=== PATIENT | female | born 1995 | race Caucasian/White ===

== ENCOUNTER 2017-08-04 09:35 | Outpatient (CLI) | payer BC ==
[~2017-08-04] VITALS: Ht 165.1 cm; Wt 101.4 kg
[2017-08-04 09:45] VITALS: BP 138/79; PULSE 95; RESP 16; Ht 165.1 cm; Wt 101.4 kg
--- NOTE | 2017-08-04 11:36 | CONS ---
Date/Time of Note Date/Time of Note DATE: 08/04/17 TIME: 11:35 Assessment/Plan Assessment/Plan Additional Assessment/Plan [facility] OUTPATIENT CONSULTATION NOTE DATE OF SERVICE: 08/04/2017 PLACE OF SERVICE: [facility], [facility] ASSESSMENT AND PLAN: A very-pleasant 22-year-old lady with multiple comorbid issues including BMI 37.2, presenting with a small lesion in segment 6 of the liver that seems to have been stable in size (2 cm) since at least February 2016 and has not changed in character for almost 1-1/2 years. The realistic chance that this is a malignancy is almost 0. It certainly could be an adenoma, but could also be areas of fat sparing within a steatotic appearing liver. Currently, I do not see any indication for invasive procedures and I have recommended continued follow-up with a repeat MRI with [facility] to be done now (2 compared to MRI from 06/09/2016) and to present the patient's case in our multidisciplinary tumor board presentation. After above shows stable disease, we can switch to ultrasound related surveillance with every 6 months for a year and perhaps yearly after that for another 2 years. This would be a similar protocol that we would use for following patients with asymptomatic hepatic adenomas. We can change our management if there are any changes with the images or with the patient's symptoms. Of much more importance is the patient's BMI of 37.2 and the hepatic steatosis that we see on the images. I believe that the clinical impact of her current lifestyle far outweigh the risks that are presented by the lesion in the liver. For this reason, I spent an extra 15 minutes of counseling regarding healthy living and ways to achieve those with permanent lifestyle changes. Discussed all of the above with the patient (no family present) and answered all questions. Patient appeared to understand and agreed with plans. With above assessment, I've recommended the followin. Liver MRI with [facility] 2. Multidisciplinary tumor board presentation after above 3. Likely can follow this lesion with ultrasound every 6 months for a year to start 6 months after above-mentioned MRI, and then likely yearly after that for another 2 years 3. Permanent lifestyle changes with the goal of bringing the BMI to between 18- 24 4. Quit smoking Thank you very much for having me involved in the care of this very pleasant patient and wonderful family. If you have any questions, please feel free to contact me at [phone]. Nature of presenting problem: Low severity (or the liver lesion; but moderate to high severity for the elevated BMI and hepatic steatosis) Please note that, given the multiple number of diagnoses or management options, the moderate amount and/or complexity of data needed to be reviewed, and low risk of complications and/or morbidity or mortality, this qualifies as moderate complexity type of decision-making. Disclaimers: 1. Inadvertent spelling and grammatical errors are likely due to electronic health record (EHR)/dictation software used and do not reflect on the quality of delivered patient care. 2. The electronic timestamp recorded on this note does not necessarily reflect the actual date and time of the visit or the service. 3. Portions of this note may have been created through electronic templates and computer algorithms that might bring in information either from the system or from other physicians and providers. Please note that such information may or may not contain errors, the occurrence of which are outside of my control. In general (but not always) this happens either in the beginning or at the end of the note. The portion of the note that I have created are generally done in 1 continuous block of text, flanked at the beginning and at the end by " ", and entered into one field in the EHR. 4. There may be other unanticipated errors in the note that are outside of my control. I can only attest to the portions of the note that I have created. Updated clinical summary: A very-pleasant 22-year-old lady with multiple comorbid issues including BMI 37.2, presenting with a small lesion in segment 6 of the liver that seems to have been stable in size (2 cm) since at least February 2016 and has not changed in character for almost 1-1/2 years. The realistic chance that this is a malignancy is almost 0. It certainly could be an adenoma, but could also be areas of fat sparing within a steatotic appearing liver. Comorbidities: 1. NAFLD (CT scan 03/06/16 hepatomegaly and fatty liver infiltration; solid homogeneously enhancing hepatic mass 1.8 cm); nl LFT 03/05; - HBV; - HCV; - GORDON; - ASMA; MRI with [facility] 06/09/16: Hepatomegaly with hepatic steatosis. Focal 1.8 cm lesion posterior lobe of the liver which demonstrate signal and enhancement characteristics which are nonspecific and may reflect focal fatty sparing in a background of diffuse fatty infiltration versus a lipid poor hepatic adenoma on a background of hepatic steatosis. Mass is also seen on ultrasound of abdomen 06/12/2017 which appears to be unchanged and measures approximately 2 cm. 2. Cysts of both ovaries 3. Elevated testosterone level in the female (free testosterone was 2.2 on 04/08. Last testosterone level was normal 09/25/2016) 4. Elevated hemoglobin A1c 5.9% 09/25/2016 5. Acne 6. Kidney calculi 7. Transient elevation of CA-19-9 64 in 05/2016; 35 on 09/25/2016 and 22 on 2016 8. Iron deficiency 9. Lung abnormality MRI 06/09/2016 multifocal airspace consolidation of the right lower lung. Possibly due to an infection 10. HDL deficiency 11. Rash, thought to be related to acne 12. BMI 37.2 ([facility] 08/04/17) REQUESTED BY: Rl Howard MD Dear Dr. Howard, Thank you very much for the opportunity to participate in the care of this very pleasant young lady and her wonderful family. HISTORY OF PRESENT ILLNESS: The patient is a very pleasant 22-year-old young lady with multiple comorbid issues as stated above whom we were kindly asked to consult regarding management of 2 cm liver lesion that was discovered on a CT scan that was done in summer 2015 for evaluation for kidney stones. Patient has had a number of imaging studies including ultrasounds and an MRI as outlined above over the course of the last number of months and they all show a stable lesion in segment 6 of the liver. She has not had any symptoms of abdominal pain, nausea, vomiting, weight loss or weight gain, or anything that could be attributed to the liver mass itself. Otherwise in her usual state of health. No other major complaints during my visit. ALLERGIES: Amoxicillin MEDICATIONS Documented in the electronic records and reviewed by me. Please see the electronic records for details, as well as details for inpatient medications which were also reviewed by me. SOCIAL HISTORY: The patient lives with family. Born in [place]. Single. No children. Student. + Tob (current every day smoker; less than 1 cigarette per day);-ETOH;-IVDU FAMILY HISTORY: History of breast and pancreas cancer in the family. Also diabetes and high blood pressure. There are no other significant medical, surgical or oncologic issues in the family as reported by the patient or reflected in the chart. REVIEW OF SYSTEMS: Other than mentioned above, there were no other pertinent positives or pertinent negatives in an otherwise complete 14 point review of systems. PHYSICAL EXAMINATION GENERAL: The patient appears to be a very pleasant young lady of [place] descent sitting in a chair, appearing stated age, and otherwise in no acute distress. BMI: 37.2 VITAL SIGNS: AVSS (please also see auto important data if available as well as the electronic records) HEENT: Normocephalic and atraumatic. Extraocular muscles and hearing are grossly intact bilaterally and symmetrically. Sclerae are nonicteric. Oral cavity is clear; oral mucosa appear to be pink and moist. Dentition: fair. NECK: Supple. There is no lymphadenopathy or JVD. There is no submental, submandibular or supraclavicular lymphadenopathy. CHEST: Rises symmetrically with each breath; patient is breathing comfortably. There are no audible wheezes, rales or rhonchi on the gross exam. HEART: Pulse is regular and palpable on the right wrist. Capillary refill is normal. Carotid pulses are palpable bilaterally and symmetrically in the neck. EXTREMITIES: Lower extremities contain no pitting edema around the ankles bilaterally and symmetrically. ABDOMEN: Abdomen is soft, nontender and nondistended. No evidence of ascites, organomegaly, caput medusae, engorged subcutaneous veins, or other abnormalities. There are no peritoneal signs or guarding. SKIN: Appears to be pink and feels warm to touch. NEUROLOGIC: Awake, alert, and follows commands appropriately. LABORATORY DATA: See below IMAGING: See electronic chart. Please note that I've personally reviewed all pertinent available images and I agree in general with their overall reported findings. Consultation Date/Type/Reason Admit Date/Time Exam/Review of Systems Vital Signs Vitals Vital Signs Date Time Temp Pulse Resp B/P Pulse Ox O2 Delivery O2 Flow Rate FiO2 08/04/17 09:45 97.8 95 16 138/79 97 Room Air SHERI RIDLEY M.D. Aug 04, 2017 11:36
== END 2017-08-04 17:00 | disposition home or self-care (01) ==
LOC: HPC 09:35
PROVIDERS: ATTEND Transplant Surgery
DX: K76.9 Liver disease, unspecified (principal); R16.0 Hepatomegaly, not elsewhere classified; N83.202 Unspecified ovarian cyst, left side; N83.201 Unspecified ovarian cyst, right side; Z87.891 Personal history of nicotine dependence; Z80.3 Family history of malignant neoplasm of breast; Z80.8 Family history of malignant neoplasm of other organs or systems; Z83.3 Family history of diabetes mellitus; Z82.49 Family history of ischemic heart disease and other diseases of the circulatory system; Z88.0 Allergy status to penicillin
CPT/HCPCS: G0463